=== PATIENT | male | born 1960 | race Caucasian/White ===

== ENCOUNTER → 2017-09-01 | Outpatient (CLI) | payer OTHER, BC ==
[~2017-09-01] MED LIST: REGADENOSON 0.4 MG/5 ML SYRINGE ONE
== END | disposition home or self-care (01) ==
LOC: CVU 06:47
PROVIDERS: ATTEND Internal Medicine Cardiovascular Disease
DX: I51.7 Cardiomegaly (principal); I71.4 Abdominal aortic aneurysm, without rupture
CPT/HCPCS: 78452; 93017; 93306; 93978; A9502; J2785